=== PATIENT | male | born 1955 | race American Indian/Alaskan Native ===

== ENCOUNTER 2020-10-02 06:23 | Observation (INO) | payer MEDICARE, OTHER ==
[2020-09-26 13:49] LABS: Hematocrit 31.6 % (35.5-45.6); Hemoglobin 11.3 gm/dl (11.8-15.2); Mean Corpuscular HGB Conc 36 % (32-34); Mean Corpuscular Volume 91 fl (84-94); Platelet Count 242 K/mm3 (140-440); Red Blood Count 3.46 M/mm3 (3.65-5.03); Red Cell Distribution Width 17.9 % (13.2-15.2)
--- NOTE | 2020-09-26 14:05 | Anesthesia Consultation ---
Anesthesia Consult and Med Hx Date of service: 10/02/20 - Airway Anesthetic Teeth Evaluation: Good, Edentulous (Upper) ROM Head & Neck: Adequate Mental/Hyoid Distance: Adequate Mallampati Class: Class III Intubation Access Assessment: Probably Good - Pre-Operative Health Status ASA Pre-Surgery Classification: ASA3 Proposed Anesthetic Plan: General - Pulmonary Hx Smoking: No Hx Respiratory Symptoms: No (+2FS. Saw radio television technical director 07/2020-? Pulmonary HTN) Hx Sleep Apnea: Yes (DX SLEEP APNEA- HAD SURGERY,PENDING RESULTS) - Cardiovascular System Hx Hypertension: Yes (1980) Hx Coronary Artery Disease: No (Saw risk control director 07/2020 and reports negative ETT) Hx Heart Attack/AMI: No (Diastolic heart failure) - Central Nervous System Hx Psychiatric Problems: Yes - Gastrointestinal Hx Gastroesophageal Reflux Disease: No - Endocrine Hx Renal Disease: Yes (CKD Stage 3) - Other Systems Hx Cancer: Yes (Prostate)
[2020-09-26 14:07] LABS: Alanine Aminotransferase 10 units/L (7-56); Albumin 4.4 g/dL (3.9-5); BUN/Creatinine Ratio 15; Blood Urea Nitrogen 21 mg/dL (9-20); Calcium 9.8 mg/dL (8.4-10.2); Hemolysis Index 5
[~2020-10-02 06:23] MED LIST: ACETAMINOPHEN 500 MG TAB PO ONE; BACTERIOSTATIC SODIUM CHLORIDE 0.9% 30 ML VIAL INFILTRATI ONE; CELECOXIB 200 MG CAP PO NR; GABAPENTIN 300 MG CAP PO NR; MAGNESIUM OXIDE 400 MG TAB PO ONE; MIDAZOLAM 2 MG/2 ML INJ IV NR
[2020-10-02] MEDS: LACTATED RINGERS 1,000 ML IV SCH ×2 (06:50→18:22)
[2020-10-02] MEDS ORDERED: ceFAZolin/STERILE WATER 2 GM/20 ML SYRINGE IV NR (07:00)
[2020-10-02] MEDS ORDERED: HYDROmorphone 1 MG/1 ML INJ IV PRN (07:16)
[2020-10-02] MEDS ORDERED: ONDANSETRON 4 MG/2 ML INJ IV PRN ×2 (07:16→11:13)
--- NOTE | 2020-10-02 07:16 | Anesthesia Day of Surgery ---
Anesthesia Day of Surgery - Day of Surgery Patient Examined: Yes Patient H&P Reviewed: Yes Patient is NPO: Yes Beta Blockers: Yes (caarvedilol today AM)
[2020-10-02] MEDS ORDERED: METHYLENE BLUE 50 MG/10 ML AMP ONE (07:30)
[2020-10-02] MEDS ORDERED: CITRIC ACID-SOD CITRATE 500 ML IV ONE (07:31)
[2020-10-02] MEDS ORDERED: CALCIUM CHLORIDE 1,000 MG/10 ML SYRINGE IV ONE ×2 (07:31→08:54)
[2020-10-02] MEDS ORDERED: THROMBIN (RECOMBINANT) 5,000 UNIT VIAL TP ONE ×2 (07:31→08:53)
[2020-10-02] MEDS ORDERED: dexAMETHasone 20 MG/5 ML VIAL ONE (07:44)
[2020-10-02] MEDS ORDERED: LIDOCAINE MPF (2%) 20 MG/1 ML VIAL 5 ML ONE (07:44)
[2020-10-02] MEDS ORDERED: ROCURONIUM 50 MG/5 ML INJ IV ONE (07:44)
[2020-10-02] MEDS ORDERED: SUCCINYLCHOLINE CHLORIDE 200 MG/10 ML INJ MDV ONE (07:44)
[2020-10-02] MEDS ORDERED: GLYCOPYRROLATE 0.4 MG/2 ML INJ ONE (07:44)
[2020-10-02] MEDS ORDERED: PHENYLEPHRINE/NS 1,000 MCG/10 ML SYRINGE (OR USE) IV ONE (07:44)
[2020-10-02] MEDS ORDERED: fentaNYL 100 MCG/2 ML INJ ONE (07:44)
[2020-10-02] MEDS ORDERED: ONDANSETRON 4 MG/2 ML INJ ONE (07:44)
[2020-10-02] MEDS ORDERED: NEOSTIGMINE 10MG/10 ML INJ MDV ONE (07:44)
[2020-10-02] MEDS ORDERED: propofoL 200 MG/20 ML VIAL IV ONE (07:45)
[2020-10-02] MEDS ORDERED: ePHEDrine SULFATE 50 MG/1 ML INJ ONE ×2 (07:53→12:39)
[2020-10-02] MEDS ORDERED: VASOPRESSIN 20 UNIT/1 ML INJ ONE ×2 (08:02→08:40)
[2020-10-02] MEDS ORDERED: CITRIC ACID-SOD CITRATE SOLN 500 ML IV SOLN IV ONE (08:52)
[2020-10-02] MEDS ORDERED: SODIUM CHLORIDE 0.9% IRRIG SOLN 2000 ML IR ONE (08:54)
[2020-10-02] MEDS ORDERED: WATER FOR IRRIG STERILE 1,500 ML BOTTLE IR ONE (08:54)
[2020-10-02] MEDS ORDERED: BUPIVACAINE-EPINEPHRINE/PF 0.5%-1:200,000 (10 ML) VIAL INFILTRATI ONE (08:59)
[2020-10-02] MEDS ORDERED: HYDROmorphone 1 MG/1 ML INJ ONE ×2 (10:07→12:53)
[2020-10-02] MEDS ORDERED: BUPIVACAINE/PF (0.5%) 5 MG/1 ML 10 ML VIAL INFILTRATI ONE (10:15)
[2020-10-02] MEDS ORDERED: ZOLPIDEM 5 MG TAB PO PRN (11:13)
[2020-10-02] MEDS ORDERED: NALOXONE 0.4 MG/1 ML INJ IV PRN (11:13)
[2020-10-02] MEDS ORDERED: MORPHINE 4 MG/1 ML INJ IV PRN (11:13)
--- NOTE | 2020-10-02 11:13 | Short Stay Summary ---
Short Stay Documentation Date of service: 10/02/20 - History H&P: obtained from office - Allergies and Medications Current Medications: Allergies lisinopril Allergy (Verified 09/25/20 17:01) Swelling Home Medications Medication Instructions Recorded Confirmed Last Taken Type Aspirin [Adult Aspirin] 81 mg PO DAILY 09/25/20 10/02/20 2 Weeks Ago History ~09/18/20 Ascorbic Acid [Vitamin C] 1,000 mg PO DAILY 09/26/20 09/26/20 10/01/20 History Cyanocobalamin (Vitamin B-12) 2,500 mcg PO DAILY 09/26/20 09/26/20 10/01/20 History [Vitamin B12] Hydralazine HCl 50 mg PO BID 09/26/20 09/26/20 10/02/20 05:00 History Multivit-Min/FA/Lycopen/Lutein 1 each PO DAILY 09/26/20 09/26/20 10/01/20 History [Centrum Silver Tablet] NIFEdipine [Nifedipine ER] 60 mg PO DAILY 09/26/20 09/26/20 10/02/20 05:00 History Quetiapine Fumarate [SEROquel] 400 mg PO BID 09/26/20 09/26/20 10/01/20 History Rosuvastatin Calcium [Crestor] 10 mg PO DAILY 09/26/20 09/26/20 10/01/20 History Terazosin (Nf) [Hytrin (Nf)] 5 mg PO QHS 09/26/20 09/26/20 10/01/20 History carBAMazepine [Carbamazepine ER] 100 mg PO BID 09/26/20 09/26/20 10/02/20 05:00 History carvediloL [Coreg] 12.5 mg PO BID 09/26/20 09/26/20 10/02/20 05:00 History gemfibroziL [Lopid] 600 mg PO BID 09/26/20 09/26/20 10/01/20 History minoxidiL [Loniten] 10 mg PO QDAY 09/26/20 09/26/20 10/01/20 History Active Medications Cefazolin Sodium (Ancef/Sterile Water 2 Gm/20 Ml) 2 gm IV PREOP NR Stop: 10/02/20 20:00 Celecoxib (Celebrex) 200 mg PO PREOP NR Stop: 10/02/20 23:59 Last Admin: 10/02/20 06:55 Dose: 200 mg Documented by: Gabapentin (Gabapentin) 300 mg PO PREOP NR Stop: 10/02/20 23:59 Last Admin: 10/02/20 06:55 Dose: 300 mg Documented by: Hydromorphone HCl (Dilaudid) 0.5 mg IV Q10MIN PRN PRN Reason: Pain , Severe (7-10) Stop: 10/02/20 20:00 Lactated Ringer's (Lactated Ringers) 1,000 mls @ 125 mls/hr IV DIRECT DIALLO Last Admin: 10/02/20 06:50 Dose: 125 mls/hr Documented by: Midazolam HCl (Versed) 2 mg IV PREOP NR Stop: 10/02/20 23:59 Last Admin: 10/02/20 07:05 Dose: 2 mg Documented by: Ondansetron HCl (Zofran) 4 mg IV ONCE PRN PRN Reason: Nausea And Vomiting Stop: 10/02/20 13:00 - Brief post op/procedure progress note Date of procedure: 10/02/20 Pre-op diagnosis: prostate cancer Post-op diagnosis: same Procedure: robotic prostatectomy Anesthesia: GETA Surgeon: SEBASTIAN RANGEL Estimated blood loss: other (500cc) Specimen disposition: to lab Condition: stable - Hospital course Hospital course: pt has norco & ultram post op info on chart pt required transfusion PRBCs went home with ghotra will monitor kidney function pt has hx of renal insufficient & will f/u with nephrology - Disposition Condition at discharge: Stable Disposition: DC-01 TO HOME OR SELFCARE Short Stay Discharge Plan Follow up with: PEDRO FIELD [Other] - 7 Days
[2020-10-02] MEDS ORDERED: LACTATED RINGERS 1,000 ML ONE ×3 (11:56→12:57)
[2020-10-02 12:35] LABS: Hematocrit 25.8 % (35.5-45.6); Hemoglobin 8.9 gm/dl (11.8-15.2)
[2020-10-02] MEDS ORDERED: ePHEDrine SULFATE 50 MG/1 ML INJ IM ONE (12:45)
[2020-10-02] MEDS ORDERED: SODIUM CHLORIDE 0.9% 500 ML 500 ML IV NR (12:48)
[2020-10-02] MEDS ORDERED: SODIUM CHLORIDE 0.9% 500 ML 500 ML ONE (13:14)
[2020-10-02] MEDS ORDERED: SODIUM CHLORIDE IR ONE (14:07)
[2020-10-02] MEDS ORDERED: SODIUM CHLORIDE IRRI 1000 ML 1,000 ML IR ONE (14:09)
--- NOTE | 2020-10-02 15:45 | Post Anesthesia Evaluation ---
- Post Anesthesia Evaluation Patient Participated: Yes Airway Patent: Yes Stable Respiratory Function: Yes Nausea/Vomiting: No Temp > 96.8F: Yes Pain Manageable: Yes Adequeate Hydration: Yes Anesthesia Complications: No Other Comments: Became hypotensive in PACU with decreased UOP. Post op H/H showed anemia and patient received 2 units pRBCs. Huang flushed by surgeon at bedside. Stable with improvement in BP at time of transfer to floor.
--- NOTE | 2020-10-02 20:47 | Operative Report ---
PREOPERATIVE DIAGNOSIS: Prostate cancer, Abi 6. POSTOPERATIVE DIAGNOSIS: Prostate cancer, [place] 6. PROCEDURE: Robotic-assisted laparoscopic prostatectomy, bladder neck suspension. SURGEON: Kahlil Chawla MD VALVE MECHANIC: Neela Amezcua. ANESTHESIA: General. ESTIMATED BLOOD LOSS: 500 mL. FLUIDS: Crystalloid. COMPLICATIONS: No complications. DRAINS: Lyndon-Florez drain x 1. INDICATIONS: This 65-year-old gentleman underwent prostate biopsy for PSA of 8.3 by another urologist. He was found to have Abi 6 adenocarcinoma of the prostate in 6 of 12 cores. Discussed options. He presented for a second opinion on 07/10/2020. Reviewed his records and discussed recommendations, also indicated would not observe, recommend robotic prostatectomy. Risks, benefits, and complications were explained. DESCRIPTION OF PROCEDURE: The patient was taken to the operative suite, placed in a supine position. After adequate general anesthesia, he was placed in a modified dorsal lithotomy position, prepped and draped in a sterile fashion. Huang catheter was placed on the operative field, 1 cm supraumbilical incision was made. Towel clips were placed. 15 cm was measured cephalad the pubic symphysis and was marked in the midline, 9 cm lateral and additional 9 cm lateral was marked as well for placement of robotic trocars. The incision was made in the supraumbilical incision. Veress needle was used for drop test, which was negative. Opening pressure was 0 degrees. Insufflation to 15 cm of water was performed without difficulty. A 0-degree lens was placed under direct vision without difficulty. No signs of injury could be appreciated. The 8 mm robotic ports were placed on the left side under direct vision and 8-mm port was placed in the right side as well as a 10 mm helper port and a 5 mm helper port on the right side. The patient was then placed in a modified dorsal lithotomy position. Robotic cart was docked between the legs. Next, attention was taken to the posterior aspect of the bladder neck. Second arch was scored exposing the seminal vesicles and vas deferens. Dissection was taken down to the apex of the prostate. Vas deferens was transected. Next, attention was taken to the anterior abdominal wall, was scored lateral to the lateral umbilical ligament exposing the pubic rami bilaterally. Bladder flap was dropped. Dorsal vein complex was controlled with 60 mm vascular stapler. There was a fair amount of parasitic blood vessels that had to be controlled with the cautery. Endopelvic fascia was opened bilaterally. Dissection was taken to the bladder neck. Transanterior bladder neck was transected exposing the Huang, which was deflated and used for anterior traction. Posterior bladder neck was transected, dissected out exposing the seminal vesicles and vas deferens, which was pulled anteriorly. Lateral pedicles were controlled with 60 mm vascular stapler. Dissection was taken to the apex of the prostate, urethra anteriorly was exposed, pulled the Huang catheter back and the posterior apex of the urethra was transected. Prostate was then placed in the EndoCatch bag. Copious irrigation was performed. Adequate hemostasis was achieved. No injury to the bladder could be appreciated due to ____ adipose tissue and the neurovascular bundle could not be appreciated. Bladder neck reconstruction was performed at the 5 o'clock and 7 o'clock positions using 2-0 Vicryl in interrupted fashion. A 12 o'clock Vicryl stitch at the bladder neck was used as a helper stitch. Double armed V-Loc was placed at the 6 o'clock position of the bladder neck and a running stitch into the urethra and bladder neck was performed without difficulty. A new 18-Finn[place] Huang catheter was advanced into the bladder without difficulty. The bladder neck stitch was cinched down. Irrigation of the Huang revealed no leak. Anastomotic stitch was then placed in the posterior aspect of the pubic rami as a bladder suspension bilaterally. [place] were removed. Copious irrigation was performed. Adequate hemostasis was achieved. Platelet-rich plasma and platelet poor plasma was injected around the periurethral area as well as a platelet membrane. Lyndon-Florez drain was brought out on the left-sided port, secured at the skin with a 2-0 silk in interrupted fashion. The robot was undocked. The patient was placed in a supine position. Umbilical incision was extended slightly to remove the prostate. #1 Vicryl in a [id number] fashion was used to close the supraumbilical incision. The other sites were removed without difficulty. Skin was closed with 3-0 Monocryl in an interrupted fashion. Huang catheter sideport was folded over and tied with 0 silk in an interrupted fashion. The patient tolerated the procedure well and was extubated and taken to recovery room in stable condition. He will be observed overnight. He has his Bactrim and [place]. Neela Amezcua was present at the bedside to facilitate surgery for the duration of the case. JOB# [id number] [facility]/NT[facility]
[2020-10-02] MEDS: PRAZOSIN 1 MG CAP PO SCH ×2 (21:00→23:03)
[2020-10-02] MEDS ORDERED: NON-FORMULARY EACH (Terazosin (Nf) 5 MG) PO SCH (21:00)
[2020-10-02] MEDS: ceFAZolin/NS 1 GM/50 ML 1 GM/50 ML BAG IV SCH (21:24)
[2020-10-02] MEDS: hydrALAZINE 25 MG TAB PO SCH (22:00)
[2020-10-02] MEDS: QUEtiapine 200 MG TAB PO SCH (22:00)
[2020-10-02] MEDS: carvediloL 12.5 MG TAB PO SCH (22:00)
[2020-10-02] MEDS ORDERED: SODIUM CHLORIDE 0.9% IRR 1,000 ML BOTTLE IR PRN (22:20)
[2020-10-02] MEDS: GEMFIBROZIL 600 MG TAB PO SCH (23:05)
[2020-10-02] MEDS: carBAMazepine XR 100 MG TAB PO SCH (23:05)
[2020-10-02] MEDS: HYDROcodone/ACETAMINOPHEN 5-325 MG TAB PO PRN (23:06)
[2020-10-03] MEDS: LACTATED RINGERS 1,000 ML IV SCH ×2 (04:15→23:57)
[2020-10-03] MEDS: HYDROcodone/ACETAMINOPHEN 5-325 MG TAB PO PRN ×3 (04:20→15:06)
[2020-10-03] MEDS: ceFAZolin/NS 1 GM/50 ML 1 GM/50 ML BAG IV SCH (05:30)
[2020-10-03 06:23] LABS: Basophils % (Auto) 0.3 % (0.0-1.8); Eosinophils % (Auto) 0.1 % (0.0-4.3); Hematocrit 21.5 % (35.5-45.6); Hemoglobin 7.5 gm/dl (11.8-15.2); Lymphocytes # (Auto) 0.9 K/mm3 (1.2-5.4); Lymphocytes % (Auto) 9.3 % (13.4-35.0); Mean Corpuscular HGB Conc 35 % (32-34); Mean Corpuscular Volume 91 fl (84-94); Monocytes # (Auto) 1.4 K/mm3 (0.0-0.8); Monocytes % (Auto) 15.6 % (0.0-7.3); Platelet Count 160 K/mm3 (140-440); Red Blood Count 2.38 M/mm3 (3.65-5.03); Red Cell Distribution Width 16.6 % (13.2-15.2)
[2020-10-03 06:42] LABS: Calcium 7.5 mg/dL (8.4-10.2)
[2020-10-03] MEDS: hydrALAZINE 25 MG TAB PO SCH ×2 (08:00→22:00)
[2020-10-03] MEDS ORDERED: SODIUM CHLORIDE 0.9% 500 ML 500 ML IV ONE (08:40)
--- NOTE | 2020-10-03 09:52 | Cat Scan Report ---
CT abdomen pelvis wo con INDICATION: anemia, abd pain, sp robotic prostatectomy. TECHNIQUE: All CT scans at this location are performed using CT dose reduction for ALARA by means of automated e xposure control. COMPARISON: None available. FINDINGS: Lung bases are clear of acute disease. Liver, gallbladder, spleen and pancreas are negative. Right ki dney and both adrenals are unremarkable. 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 Pelvis Huang catheter is present in the urinary bladder, so the bladder is mostly collapsed. There is modera te extraluminal gas in the lower abdomen and pelvis as well as moderate edema and fluid accumulation in the perirenal spaces and mesentery of the lower abdomen and pelvis. This fluid is high in attenuat ion and could well represent hemorrhage. There also appears to be a moderate-sized hematoma of the in ferior right lateral abdominal wall. IMPRESSION: 1. Extensive postop change in the pelvis and lower abdomen, with what is thought to be fairly extensi ve hemorrhage into the lower peritoneum, as well as a moderate-sized hematoma of the right lateral an d inferior abdominal wall. Signer Name: Anil Hermosillo MD Signed: 10/03/2020 9:47 AM Workstation Name: [id number]
[2020-10-03] MEDS ORDERED: [UNRECOGNIZED DRUG - OTHER] PO SCH (10:00)
[2020-10-03] MEDS: NIFEdipine XL 60 MG TAB PO SCH (10:00)
[2020-10-03] MEDS ORDERED: MULTIVIT MIN PO SCH (10:00)
[2020-10-03] MEDS ORDERED: LYCOPEN PO SCH (10:00)
[2020-10-03] MEDS ORDERED: ROSUVASTATIN CALCIUM 10 MG PO SCH (10:00)
[2020-10-03] MEDS ORDERED: LUTEIN PO SCH (10:00)
[2020-10-03 14:10] LABS: INR 1.25 (0.87-1.13)
[2020-10-03 14:11] LABS: Partial Thromboplastin Time 34.7 Sec. (24.2-36.6)
[2020-10-03] MEDS: CYANOCOBALAMIN (VIT B-12) 1000 MCG TAB PO SCH (15:05)
[2020-10-03] MEDS: MINOXIDIL 10 MG TAB PO SCH (15:06)
[2020-10-03] MEDS: QUEtiapine 200 MG TAB PO SCH ×2 (15:06→23:41)
[2020-10-03] MEDS: MULTIVITAMINS,THER W-MINERALS TAB PO SCH (15:07)
[2020-10-03] MEDS: carvediloL 12.5 MG TAB PO SCH ×2 (15:11→23:40)
[2020-10-03] MEDS: carBAMazepine XR 100 MG TAB PO SCH ×2 (15:12→23:42)
[2020-10-03] MEDS: GEMFIBROZIL 600 MG TAB PO SCH ×2 (15:15→23:41)
--- NOTE | 2020-10-03 15:15 | Progress Note ---
Assessment and Plan Assessment and plan: 65 year old male admitted for Robotic Prostectomy Post op Day 1 Prostate CA s/p prostectomy Acute Kidney Injury s/p Vasomotor Nephropathy Thrombocytopenia Anemia secondary to precipitous Drop in Hemoglobin Dehydration Hyponatremia JESS HTN Plan Continue supportive care Obtain Nephrology input if no improvement in Renal Restart Home meds Ensure care for JOSE drain Pain control Monitor H/H Discharge when ok with Urology History Interval history: Patient seen and examined, resting comfortable in no acute distress. Hospitalist Physical - Constitutional Vitals: Temp Pulse Resp BP Pulse Ox 98.4 F 66 18 131/63 100 10/03/20 14:50 10/03/20 15:11 10/03/20 14:50 10/03/20 15:11 10/03/20 14:50 General appearance: Present: no acute distress, well-nourished - EENT Eyes: Present: PERRL ENT: hearing intact - Neck Neck: Present: supple, normal ROM - Respiratory Respiratory effort: normal Respiratory: bilateral: CTA - Cardiovascular Rhythm: regular Heart Sounds: Present: S1 & S2. Absent: systolic murmur, diastolic murmur - Extremities Extremities: no ischemia, pulses intact, pulses symmetrical, No edema, normal temperature, normal color, Full ROM Peripheral Pulses: within normal limits - Abdominal General gastrointestinal: soft, non-tender, non-distended, normal bowel sounds - Integumentary Integumentary: Present: clear, warm, dry - Psychiatric Psychiatric: appropriate mood/affect, intact judgment & insight - Neurologic Neurologic: CNII-XII intact, moves all extremities - Allied Health Allied health notes reviewed: nursing Results - Labs CBC & Chem 7: 10/04/20 06:09 10/04/20 06:09 Labs: Laboratory Last Values WBC 9.2 K/mm3 (4.5-11.0) 10/03/20 05:46 RBC 2.38 M/mm3 (3.65-5.03) L 10/03/20 05:46 Hgb 7.5 gm/dl (11.8-15.2) L 10/03/20 05:46 Hct 21.5 % (35.5-45.6) L 10/03/20 05:46 MCV 91 fl (84-94) 10/03/20 05:46 MCH 32 pg (28-32) 10/03/20 05:46 MCHC 35 % (32-34) H 10/03/20 05:46 RDW 16.6 % (13.2-15.2) H 10/03/20 05:46 Plt Count 160 K/mm3 (140-440) 10/03/20 05:46 Lymph % (Auto) 9.3 % (13.4-35.0) L 10/03/20 05:46 [place] % (Auto) 15.6 % (0.0-7.3) H 10/03/20 05:46 Eos % (Auto) 0.1 % (0.0-4.3) 10/03/20 05:46 Baso % (Auto) 0.3 % (0.0-1.8) 10/03/20 05:46 Lymph # (Auto) 0.9 K/mm3 (1.2-5.4) L 10/03/20 05:46 [place] # (Auto) 1.4 K/mm3 (0.0-0.8) H 10/03/20 05:46 Eos # (Auto) 0.0 K/mm3 (0.0-0.4) 10/03/20 05:46 Baso # (Auto) 0.0 K/mm3 (0.0-0.1) 10/03/20 05:46 Seg Neutrophils % 74.7 % (40.0-70.0) H 10/03/20 05:46 Seg Neutrophils # 6.9 K/mm3 (1.8-7.7) 10/03/20 05:46 PT 15.7 Sec. (12.2-14.9) H 10/03/20 13:08 INR 1.25 (0.87-1.13) H 10/03/20 13:08 APTT 34.7 Sec. (24.2-36.6) 10/03/20 13:08 Sodium 130 mmol/L (137-145) L 10/03/20 05:46 Potassium 4.8 mmol/L (3.6-5.0) 10/03/20 05:46 Chloride 97.8 mmol/L (98-107) L 10/03/20 05:46 Carbon Dioxide 22 mmol/L (22-30) 10/03/20 05:46 Anion Gap 15 mmol/L 10/03/20 05:46 BUN 39 mg/dL (9-20) H 10/03/20 05:46 Creatinine 3.3 mg/dL (0.8-1.3) H 10/03/20 05:46 Estimated GFR 23 ml/min 10/03/20 05:46 BUN/Creatinine Ratio 12 % 10/03/20 05:46 Glucose 136 mg/dL (75-100) H 10/03/20 05:46 Calcium 7.5 mg/dL (8.4-10.2) L 10/03/20 05:46 Total Bilirubin 0.30 mg/dL (0.1-1.2) 09/26/20 13:30 AST 20 units/L (5-40) 09/26/20 13:30 ALT 10 units/L (7-56) 09/26/20 13:30 Alkaline Phosphatase 75 units/L (35-129) 09/26/20 13:30 Total Protein 8.4 g/dL (6.3-8.2) H 09/26/20 13:30 Albumin 4.4 g/dL (3.9-5) 09/26/20 13:30 Albumin/Globulin Ratio 1.1 % 09/26/20 13:30 Coronavirus (PCR) Negative (Negative) 09/26/20 Unknown Blood Type O POSITIVE 10/02/20 06:50 Antibody Screen Negative 10/02/20 06:50 Crossmatch See Detail 10/02/20 06:50 Huang/IV: Voiding Method Indwelling Catheter IV Catheter Type [Left Forearm INT / [place]ine [place] ] IV Catheter Type [Right Peripheral IV Forearm] Active Medications - Current Medications Current Medications: Generic Name Dose Route Start Last Admin Trade Name Freq PRN Reason Stop Dose Admin Hydrocodone Bitart/Acetaminophen 2 each 10/02/20 11:13 10/03/20 15:06 [place] 5/325 PO 2 each Q4H PRN Administration Pain, Moderate (4-6) Atorvastatin Calcium 20 mg 10/02/20 21:00 10/02/20 21:00 Lipitor PO Not Given QHS DIALLO Carbamazepine 100 mg 10/02/20 22:00 10/03/20 15:12 Tegretol Xr PO 100 mg BID DIALLO Administration Carvedilol 12.5 mg 10/02/20 22:00 10/03/20 15:11 Coreg PO 12.5 mg BID DIALLO Administration Cyanocobalamin 2,500 mcg 10/03/20 10:00 10/03/20 15:05 Vitamin B-12 PO 2,500 mcg DAILY DIALLO Administration Gemfibrozil 600 mg 10/02/20 22:00 10/02/20 23:05 Lopid PO 600 mg BID DIALLO Administration Hydralazine HCl 50 mg 10/02/20 22:00 10/02/20 22:00 Apresoline PO Not Given BID DIALLO Lactated Ringer's 1,000 mls @ 125 mls/hr 10/02/20 06:00 10/03/20 04:15 Lactated Ringers IV 125 mls/hr DIRECT DIALLO Administration Minoxidil 10 mg 10/03/20 08:00 10/03/20 15:06 Loniten PO 10 mg QDAY DIALLO Administration Morphine Sulfate 4 mg 10/02/20 11:13 Morphine IV Q4H PRN Pain , Severe (7-10) Multivitamins/Minerals 1 each 10/03/20 08:00 10/03/20 15:07 Theragran-M Tab PO 1 each QDAY DIALLO Administration Naloxone HCl 0.1 mg 10/02/20 11:13 Naloxone IV Q2MIN PRN Res Rate </= 8 or 02 SAT < 92% Nifedipine 60 mg 10/03/20 10:00 Procardia Xl PO DAILY DIALLO Ondansetron HCl 4 mg 10/02/20 11:13 Zofran IV Q8H PRN Nausea And Vomiting Prazosin HCl 1 mg 10/02/20 21:00 10/02/20 21:00 Prazosin PO Not Given QHS DIALLO Quetiapine Fumarate 400 mg 10/02/20 22:00 10/03/20 15:06 Seroquel PO 400 mg BID DIALLO Administration Sodium Chloride 1,000 ml 10/02/20 22:20 Nacl 0.9% IR PRN PRN Wound Care Zolpidem Tartrate 5 mg 10/02/20 11:13 Ambien PO QHS PRN Sleep
--- NOTE | 2020-10-03 17:28 | Progress Note ---
Subjective Date of service: 10/03/20 Interval history: s/p robotic prostatectomy 10-02-20 pt with post op pain just finished PRBC'S----5PM abd mild distended ghotra----irrigates well --no clots guillermo site clean CTAP--- + pelvic hemorrhage, rt lateral abd wall bleed (? port site) A/P s/p robotic prostatectomy 10-02-20 acute hemorrhage--s/p transfusion renal insufficiency dehydration check labs regular diet Objective - Constitutional Vitals: Vital Signs - 12hr 10/03/20 10/03/20 10/03/20 06:08 07:57 10:33 Temperature 97.4 F L 98.1 F 97.5 F L Pulse Rate 57 L 61 62 Respiratory 18 18 18 Rate Blood Pressure 114/46 97/41 O2 Sat by Pulse 97 93 99 Oximetry 10/03/20 10/03/20 10/03/20 12:17 12:38 12:42 Temperature 98.2 F 98.2 F 98.3 F Pulse Rate 58 L 58 L 60 Respiratory 18 18 18 Rate Blood Pressure 127/65 127/65 129/67 O2 Sat by Pulse 100 100 100 Oximetry 10/03/20 10/03/20 10/03/20 12:57 13:27 13:57 Temperature 98.3 F 98.4 F 98.5 F Pulse Rate 61 61 60 Respiratory 18 18 18 Rate Blood Pressure 128/69 116/67 123/62 O2 Sat by Pulse 100 100 100 Oximetry 10/03/20 10/03/20 10/03/20 14:27 14:37 14:46 Temperature 98.5 F 98.4 F 98.4 F Pulse Rate 60 60 63 Respiratory 18 18 19 Rate Blood Pressure 127/60 130/63 133/72 O2 Sat by Pulse 100 100 100 Oximetry 10/03/20 10/03/20 10/03/20 14:50 15:05 15:11 Temperature 98.4 F 98.5 F Pulse Rate 66 65 66 Respiratory 18 18 Rate Blood Pressure 126/66 128/67 131/63 O2 Sat by Pulse 100 100 Oximetry 10/03/20 15:17 Temperature 98.5 F Pulse Rate 68 Respiratory 18 Rate Blood Pressure 131/63 O2 Sat by Pulse 99 Oximetry - Labs CBC & Chem 7: 10/03/20 05:46 10/03/20 05:46 Labs: Abnormal lab results 10/02/20 10/03/20 10/03/20 Range/Units 06:50 05:46 05:46 RBC 2.38 L (3.65-5.03) M/mm3 Hgb 7.5 L (11.8-15.2) gm/dl Hct 21.5 L (35.5-45.6) % MCHC 35 H (32-34) % RDW 16.6 H (13.2-15.2) % Lymph % (Auto) 9.3 L (13.4-35.0) % [place] % (Auto) 15.6 H (0.0-7.3) % Lymph # (Auto) 0.9 L (1.2-5.4) K/mm3 [place] # (Auto) 1.4 H (0.0-0.8) K/mm3 Seg Neutrophils % 74.7 H (40.0-70.0) % PT (12.2-14.9) Sec. INR (0.87-1.13) Sodium 130 L (137-145) mmol/L Chloride 97.8 L (98-107) mmol/L BUN 39 H (9-20) mg/dL Creatinine 3.3 H (0.8-1.3) mg/dL Glucose 136 H (75-100) mg/dL Calcium 7.5 L (8.4-10.2) mg/dL Crossmatch See Detail 10/03/20 Range/Units 13:08 RBC (3.65-5.03) M/mm3 Hgb (11.8-15.2) gm/dl Hct (35.5-45.6) % MCHC (32-34) % RDW (13.2-15.2) % Lymph % (Auto) (13.4-35.0) % [place] % (Auto) (0.0-7.3) % Lymph # (Auto) (1.2-5.4) K/mm3 [place] # (Auto) (0.0-0.8) K/mm3 Seg Neutrophils % (40.0-70.0) % PT 15.7 H (12.2-14.9) Sec. INR 1.25 H (0.87-1.13) Sodium (137-145) mmol/L Chloride (98-107) mmol/L BUN (9-20) mg/dL Creatinine (0.8-1.3) mg/dL Glucose (75-100) mg/dL Calcium (8.4-10.2) mg/dL Crossmatch Medications & Allergies - Medications Allergies/Adverse Reactions: Allergies lisinopril Allergy (Verified 09/25/20 17:01) Swelling Home Medications: Home Medications Medication Instructions Recorded Confirmed Last Taken Type Aspirin [Adult Aspirin] 81 mg PO DAILY 09/25/20 10/02/20 2 Weeks Ago History ~09/18/20 Ascorbic Acid [Vitamin C] 1,000 mg PO DAILY 09/26/20 09/26/20 10/01/20 History Cyanocobalamin (Vitamin B-12) 2,500 mcg PO DAILY 09/26/20 09/26/20 10/01/20 History [Vitamin B12] Hydralazine HCl 50 mg PO BID 09/26/20 09/26/20 10/02/20 05:00 History Multivit-Min/FA/Lycopen/Lutein 1 each PO DAILY 09/26/20 09/26/20 10/01/20 H istory [Centrum Silver Tablet] NIFEdipine [Nifedipine ER] 60 mg PO DAILY 09/26/20 09/26/20 10/02/20 05:00 History Quetiapine Fumarate [SEROquel] 400 mg PO BID 09/26/20 09/26/20 10/01/20 History Rosuvastatin Calcium [Crestor] 10 mg PO DAILY 09/26/20 09/26/20 10/01/20 History Terazosin (Nf) [Hytrin (Nf)] 5 mg PO QHS 09/26/20 09/26/20 10/01/20 History carBAMazepine [Carbamazepine ER] 100 mg PO BID 09/26/20 09/26/20 10/02/20 05:00 History carvediloL [Coreg] 12.5 mg PO BID 09/26/20 09/26/20 10/02/20 05:00 History gemfibroziL [Lopid] 600 mg PO BID 09/26/20 09/26/20 10/01/20 History minoxidiL [Loniten] 10 mg PO QDAY 09/26/20 09/26/20 10/01/20 History Active Medications: Generic Name Dose Route Start Last Admin Trade Name Freq PRN Reason Stop Dose Admin Hydrocodone Bitart/Acetaminophen 2 each 10/02/20 11:13 10/03/20 15:06 [place] 5/325 PO 2 each Q4H PRN Administration Pain, Moderate (4-6) Atorvastatin Calcium 20 mg 10/02/20 21:00 10/02/20 21:00 Lipitor PO Not Given QHS DIALLO Carbamazepine 100 mg 10/02/20 22:00 10/03/20 15:12 Tegretol Xr PO 100 mg BID DIALLO Administration Carvedilol 12.5 mg 10/02/20 22:00 10/03/20 15:11 Coreg PO 12.5 mg BID DIALLO Administration Cyanocobalamin 2,500 mcg 10/03/20 10:00 10/03/20 15:05 Vitamin B-12 PO 2,500 mcg DAILY DIALLO Administration Gemfibrozil 600 mg 10/02/20 22:00 10/02/20 23:05 Lopid PO 600 mg BID DIALLO Administration Hydralazine HCl 50 mg 10/02/20 22:00 10/02/20 22:00 Apresoline PO Not Given BID [facility] Lactated Ringer's 1,000 mls @ 125 mls/hr 10/02/20 06:00 10/03/20 04:15 Lactated Ringers IV 125 mls/hr DIRECT DIALLO Administration Minoxidil 10 mg 10/03/20 08:00 10/03/20 15:06 Loniten PO 10 mg QDAY DIALLO Administration Morphine Sulfate 4 mg 10/02/20 11:13 Morphine IV Q4H PRN Pain , Severe (7-10) Multivitamins/Minerals 1 each 10/03/20 08:00 10/03/20 15:07 Theragran-M Tab PO 1 each QDAY DIALLO Administration Naloxone HCl 0.1 mg 10/02/20 11:13 Naloxone IV Q2MIN PRN Res Rate </= 8 or 02 SAT < 92% Nifedipine 60 mg 10/03/20 10:00 Procardia Xl PO DAILY [facility] Ondansetron HCl 4 mg 10/02/20 11:13 Zofran IV Q8H PRN Nausea And Vomiting Prazosin HCl 1 mg 10/02/20 21:00 10/02/20 21:00 Prazosin PO Not Given QHS [facility] Quetiapine Fumarate 400 mg 10/02/20 22:00 10/03/20 15:06 Seroquel PO 400 mg BID DIALLO Administration Sodium Chloride 1,000 ml 10/02/20 22:20 Nacl 0.9% IR PRN PRN Wound Care Zolpidem Tartrate 5 mg 10/02/20 11:13 Ambien PO QHS PRN Sleep
[2020-10-03 19:22] LABS: Basophils % (Auto) 0.5 % (0.0-1.8); Eosinophils # (Auto) 0.2 K/mm3 (0.0-0.4); Eosinophils % (Auto) 2.5 % (0.0-4.3); Hematocrit 25.1 % (35.5-45.6); Hemoglobin 8.7 gm/dl (11.8-15.2); Lymphocytes % (Auto) 11.1 % (13.4-35.0); Mean Corpuscular HGB Conc 35 % (32-34); Mean Corpuscular Volume 91 fl (84-94); Monocytes # (Auto) 1.2 K/mm3 (0.0-0.8); Monocytes % (Auto) 12.9 % (0.0-7.3); Platelet Count 127 K/mm3 (140-440); Red Blood Count 2.77 M/mm3 (3.65-5.03)
[2020-10-03] MEDS: PRAZOSIN 1 MG CAP PO SCH (22:00)
[2020-10-04] MEDS: HYDROcodone/ACETAMINOPHEN 5-325 MG TAB PO PRN ×4 (05:37→18:35)
[2020-10-04 06:53] LABS: Hematocrit 23.4 % (35.5-45.6); Hemoglobin 8.2 gm/dl (11.8-15.2); Mean Corpuscular HGB Conc 35 % (32-34); Mean Corpuscular Volume 90 fl (84-94); Platelet Count 124 K/mm3 (140-440); Red Blood Count 2.61 M/mm3 (3.65-5.03); Red Cell Distribution Width 16.5 % (13.2-15.2)
[2020-10-04 07:01] LABS: INR 1.22 (0.87-1.13); Partial Thromboplastin Time 35.6 Sec. (24.2-36.6)
[2020-10-04 07:05] LABS: Calcium 7.6 mg/dL (8.4-10.2)
--- NOTE | 2020-10-04 09:48 | Progress Note ---
Subjective Interval history: s/p robotic prostatectomy 10-02-20 pt with post op pain abd mild distended ghotra----irrigates well --no clots guillermo site clean-- removed CTAP--- + pelvic hemorrhage, rt lateral abd wall bleed (? port site) A/P s/p robotic prostatectomy 10-02-20 acute hemorrhage--s/p transfusion regular check labs at noon possible home today Objective - Constitutional Vitals: Vital Signs - 12hr 10/03/20 10/03/20 10/03/20 22:00 23:35 23:40 Temperature 97.5 F L Pulse Rate 64 64 64 Respiratory 18 Rate Blood Pressure 128/55 128/55 128/55 O2 Sat by Pulse 95 Oximetry 10/04/20 10/04/20 04:27 07:04 Temperature 97.7 F 98.5 F Pulse Rate 66 64 Respiratory 18 20 Rate Blood Pressure 133/63 129/64 O2 Sat by Pulse 96 95 Oximetry - Labs CBC & Chem 7: 10/04/20 06:09 10/04/20 06:09 Labs: Abnormal lab results 10/02/20 10/03/20 10/03/20 Range/Units 06:50 13:08 18:58 RBC 2.77 L (3.65-5.03) M/mm3 Hgb 8.7 L (11.8-15.2) gm/dl Hct 25.1 L (35.5-45.6) % MCHC 35 H (32-34) % RDW 16.0 H (13.2-15.2) % Plt Count 127 L (140-440) K/mm3 Lymph % (Auto) 11.1 L (13.4-35.0) % [place] % (Auto) 12.9 H (0.0-7.3) % Lymph # (Auto) 1.0 L (1.2-5.4) K/mm3 [place] # (Auto) 1.2 H (0.0-0.8) K/mm3 Seg Neutrophils % 73.0 H (40.0-70.0) % PT 15.7 H (12.2-14.9) Sec. INR 1.25 H (0.87-1.13) Sodium (137-145) mmol/L BUN (9-20) mg/dL Creatinine (0.8-1.3) mg/dL Calcium (8.4-10.2) mg/dL Crossmatch See Detail 10/04/20 10/04/20 10/04/20 Range/Units 06:09 06:09 06:09 RBC 2.61 L (3.65-5.03) M/mm3 Hgb 8.2 L (11.8-15.2) gm/dl Hct 23.4 L (35.5-45.6) % MCHC 35 H (32-34) % RDW 16.5 H (13.2-15.2) % Plt Count 124 L (140-440) K/mm3 Lymph % (Auto) (13.4-35.0) % [place] % (Auto) (0.0-7.3) % Lymph # (Auto) (1.2-5.4) K/mm3 [place] # (Auto) (0.0-0.8) K/mm3 Seg Neutrophils % (40.0-70.0) % PT 15.4 H (12.2-14.9) Sec. INR 1.22 H (0.87-1.13) Sodium 133 L (137-145) mmol/L BUN 39 H (9-20) mg/dL Creatinine 3.9 H (0.8-1.3) mg/dL Calcium 7.6 L (8.4-10.2) mg/dL Crossmatch Medications & Allergies - Medications Allergies/Adverse Reactions: Allergies lisinopril Allergy (Verified 09/25/20 17:01) Swelling Home Medications: Home Medications Medication Instructions Recorded Confirmed Last Taken Type Aspirin [Adult Aspirin] 81 mg PO DAILY 09/25/20 10/02/20 2 Weeks Ago History ~09/18/20 Ascorbic Acid [Vitamin C] 1,000 mg PO DAILY 09/26/20 09/26/20 10/01/20 History Cyanocobalamin (Vitamin B-12) 2,500 mcg PO DAILY 09/26/20 09/26/20 10/01/20 History [Vitamin B12] Hydralazine HCl 50 mg PO BID 09/26/20 09/26/20 10/02/20 05:00 History Multivit-Min/FA/Lycopen/Lutein 1 each PO DAILY 09/26/20 09/26/20 10/01/20 History [Centrum Silver Tablet] NIFEdipine [Nifedipine ER] 60 mg PO DAILY 09/26/20 09/26/20 10/02/20 05:00 History Quetiapine Fumarate [SEROquel] 400 mg PO BID 09/26/20 09/26/20 10/01/20 History Rosuvastatin Calcium [Crestor] 10 mg PO DAILY 09/26/20 09/26/20 10/01/20 History Terazosin (Nf) [Hytrin (Nf)] 5 mg PO QHS 09/26/20 09/26/20 10/01/20 History carBAMazepine [Carbamazepine ER] 100 mg PO BID 09/26/20 09/26/20 10/02/20 05:00 History carvediloL [Coreg] 12.5 mg PO BID 09/26/20 09/26/20 10/02/20 05:00 History gemfibroziL [Lopid] 600 mg PO BID 09/26/20 09/26/20 10/01/20 History minoxidiL [Loniten] 10 mg PO QDAY 09/26/20 09/26/20 10/01/20 History Active Medications: Generic Name Dose Route Start Last Admin Trade Name Freq PRN Reason Stop Dose Admin Hydrocodone Bitart/Acetaminophen 2 each 10/02/20 11:13 10/04/20 05:37 [place] 5/325 PO 2 each Q4H PRN Administration Pain, Moderate (4-6) Atorvastatin Calcium 20 mg 10/04/20 10:00 Lipitor PO DAILY DIALLO Carbamazepine 100 mg 10/02/20 22:00 10/03/20 23:42 Tegretol Xr PO 100 mg BID DIALLO Administration Carvedilol 12.5 mg 10/02/20 22:00 10/03/20 23:40 Coreg PO 12.5 mg BID DIALLO Administration Cyanocobalamin 2,500 mcg 10/03/20 10:00 10/03/20 15:05 Vitamin B-12 PO 2,500 mcg DAILY DIALLO Administration Gemfibrozil 600 mg 10/02/20 22:00 10/03/20 23:41 Lopid PO 600 mg BID DIALLO Administration Hydralazine HCl 50 mg 10/02/20 22:00 10/03/20 22:00 Apresoline PO Not Given BID DIALLO Lactated Ringer's 1,000 mls @ 125 mls/hr 10/02/20 06:00 10/03/20 23:57 Lactated Ringers IV 125 mls/hr DIRECT DIALLO Administration Minoxidil 10 mg 10/03/20 08:00 10/03/20 15:06 Loniten PO 10 mg QDAY DIALLO Administration Morphine Sulfate 4 mg 10/02/20 11:13 Morphine IV Q4H PRN Pain , Severe (7-10) Multivitamins/Minerals 1 each 10/03/20 08:00 10/03/20 15:07 Theragran-M Tab PO 1 each QDAY DIALLO Administration Naloxone HCl 0.1 mg 10/02/20 11:13 Naloxone IV Q2MIN PRN Res Rate </= 8 or 02 SAT < 92% Nifedipine 60 mg 10/03/20 10:00 10/03/20 10:00 Procardia Xl PO Not Given DAILY DIALLO Ondansetron HCl 4 mg 10/02/20 11:13 Zofran IV Q8H PRN Nausea And Vomiting Prazosin HCl 1 mg 10/02/20 21:00 10/03/20 22:00 Prazosin PO Not Given QHS DIALLO Quetiapine Fumarate 400 mg 10/02/20 22:00 10/03/20 23:41 Seroquel PO 400 mg BID DIALLO Administration Sodium Chloride 1,000 ml 10/02/20 22:20 Nacl 0.9% IR PRN PRN Wound Care Zolpidem Tartrate 5 mg 10/02/20 11:13 Ambien PO QHS PRN Sleep
[2020-10-04] MEDS: NIFEdipine XL 60 MG TAB PO SCH (11:34)
[2020-10-04] MEDS: carvediloL 12.5 MG TAB PO SCH (11:35)
[2020-10-04] MEDS: carBAMazepine XR 100 MG TAB PO SCH (11:36)
[2020-10-04] MEDS: CYANOCOBALAMIN (VIT B-12) 1000 MCG TAB PO SCH (11:36)
[2020-10-04] MEDS: hydrALAZINE 25 MG TAB PO SCH (11:37)
[2020-10-04] MEDS: GEMFIBROZIL 600 MG TAB PO SCH (11:38)
[2020-10-04] MEDS: MINOXIDIL 10 MG TAB PO SCH (11:38)
[2020-10-04] MEDS: QUEtiapine 200 MG TAB PO SCH (11:43)
[2020-10-04] MEDS: MULTIVITAMINS,THER W-MINERALS TAB PO SCH (11:43)
[2020-10-04 14:09] LABS: Basophils # (Auto) 0.1 K/mm3 (0.0-0.1); Basophils % (Auto) 0.6 % (0.0-1.8); Eosinophils # (Auto) 0.5 K/mm3 (0.0-0.4); Eosinophils % (Auto) 4.8 % (0.0-4.3); Hematocrit 25.1 % (35.5-45.6); Hemoglobin 8.8 gm/dl (11.8-15.2); Lymphocytes # (Auto) 0.9 K/mm3 (1.2-5.4); Lymphocytes % (Auto) 8.7 % (13.4-35.0); Mean Corpuscular HGB Conc 35 % (32-34); Mean Corpuscular Volume 91 fl (84-94); Monocytes # (Auto) 1.2 K/mm3 (0.0-0.8); Monocytes % (Auto) 11.3 % (0.0-7.3); Platelet Count 129 K/mm3 (140-440); Red Blood Count 2.77 M/mm3 (3.65-5.03); Red Cell Distribution Width 17.1 % (13.2-15.2)
--- NOTE | 2020-10-04 15:29 | Progress Note ---
Assessment and Plan Assessment and plan: 65 year old male admitted for Robotic Prostectomy Post op Day 2 Prostate CA s/p prostectomy Acute Kidney Injury s/p Vasomotor Nephropathy Thrombocytopenia Anemia secondary to precipitous Drop in Hemoglobin Dehydration Hyponatremia JESS HTN Plan 10/04: Mild improvement in renal function. I will recommend nephrology evaluation outpatient or inpatient. My understanding is the patient is for discharge today. Discussed this findings with the patient. Continue supportive care Obtain Nephrology input if no improvement in Renal Restart Home meds Ensure care for JOSE drain Pain control Monitor H/H Discharge when ok with Urology History Interval history: Patient seen and examined, resting comfortable in no acute distress. Hospitalist Physical - Physical exam Narrative exam: VITAL SIGNS: Reviewed. GENERAL: The patient appears normally developed, Vital signs as documented. HEAD: No signs of head trauma. EYES: Pupils are equal. Extraocular motions intact. EARS: Hearing grossly intact. MOUTH: Oropharynx is normal. NECK: No adenopathy, no JVD. CHEST: Chest with clear breath sounds bilaterally. No wheezes, rales, or rhonchi. CARDIAC: Regular rate and rhythm. S1 and S2, without murmurs, gallops, or rubs. VASCULAR: No Edema. Peripheral pulses normal and equal in all extremities. ABDOMEN: Soft, non tender and non distended. No rebound or guarding, and no masses palpated. Bowel Sounds normal. MUSCULOSKELETAL: Good range of motion of all major joints. Extremities without clubbing, cyanosis or edema. NEUROLOGIC EXAM: Alert and oriented x 3 No focal sensory or strength deficits. Speech normal. Follows commands. PSYCHIATRIC: Mood normal. SKIN: detail exam as documented in skin assessment - Constitutional Vitals: Temp Pulse Resp BP Pulse Ox 98.8 F 72 20 115/50 94 10/04/20 12:26 10/04/20 12:26 10/04/20 12:26 10/04/20 12:26 10/04/20 12:26 General appearance: Present: no acute distress, well-nourished Results - Labs CBC & Chem 7: 10/04/20 13:49 10/04/20 13:49 Labs: Laboratory Last Values WBC 10.5 K/mm3 (4.5-11.0) 10/04/20 13:49 RBC 2.77 M/mm3 (3.65-5.03) L 10/04/20 13:49 Hgb 8.8 gm/dl (11.8-15.2) L 10/04/20 13:49 Hct 25.1 % (35.5-45.6) L 10/04/20 13:49 MCV 91 fl (84-94) 10/04/20 13:49 MCH 32 pg (28-32) 10/04/20 13:49 MCHC 35 % (32-34) H 10/04/20 13:49 RDW 17.1 % (13.2-15.2) H 10/04/20 13:49 Plt Count 129 K/mm3 (140-440) L 10/04/20 13:49 Lymph % (Auto) 8.7 % (13.4-35.0) L 10/04/20 13:49 [place] % (Auto) 11.3 % (0.0-7.3) H 10/04/20 13:49 Eos % (Auto) 4.8 % (0.0-4.3) H 10/04/20 13:49 Baso % (Auto) 0.6 % (0.0-1.8) 10/04/20 13:49 Lymph # (Auto) 0.9 K/mm3 (1.2-5.4) L 10/04/20 13:49 [place] # (Auto) 1.2 K/mm3 (0.0-0.8) H 10/04/20 13:49 Eos # (Auto) 0.5 K/mm3 (0.0-0.4) H 10/04/20 13:49 Baso # (Auto) 0.1 K/mm3 (0.0-0.1) 10/04/20 13:49 Seg Neutrophils % 74.6 % (40.0-70.0) H 10/04/20 13:49 Seg Neutrophils # 7.9 K/mm3 (1.8-7.7) H 10/04/20 13:49 PT 15.4 Sec. (12.2-14.9) H 10/04/20 06:09 INR 1.22 (0.87-1.13) H 10/04/20 06:09 APTT 35.6 Sec. (24.2-36.6) 10/04/20 06:09 Sodium 133 mmol/L (137-145) L 10/04/20 13:49 Potassium 4.5 mmol/L (3.6-5.0) 10/04/20 13:49 Chloride 99.9 mmol/L (98-107) 10/04/20 13:49 Carbon Dioxide 27 mmol/L (22-30) 10/04/20 13:49 Anion Gap 11 mmol/L 10/04/20 13:49 BUN 36 mg/dL (9-20) H 10/04/20 13:49 Creatinine 3.7 mg/dL (0.8-1.3) H 10/04/20 13:49 Estimated GFR 20 ml/min 10/04/20 13:49 BUN/Creatinine Ratio 10 % 10/04/20 13:49 Glucose 100 mg/dL (75-100) 10/04/20 13:49 Calcium 8.0 mg/dL (8.4-10.2) L 10/04/20 13:49 Total Bilirubin 0.30 mg/dL (0.1-1.2) 09/26/20 13:30 AST 20 units/L (5-40) 09/26/20 13:30 ALT 10 units/L (7-56) 09/26/20 13:30 Alkaline Phosphatase 75 units/L (35-129) 09/26/20 13:30 Total Protein 8.4 g/dL (6.3-8.2) H 09/26/20 13:30 Albumin 4.4 g/dL (3.9-5) 09/26/20 13:30 Albumin/Globulin Ratio 1.1 % 09/26/20 13:30 Coronavirus (PCR) Negative (Negative) 09/26/20 Unknown Blood Type O POSITIVE 10/02/20 06:50 Antibody Screen Negative 10/02/20 06:50 Crossmatch See Detail 10/02/20 06:50 Huang/IV: Voiding Method Indwelling Catheter IV Catheter Type [Left Forearm INT / Saline Lock ] IV Catheter Type [Right Peripheral IV Forearm] Active Medications - Current Medications Current Medications: Generic Name Dose Route Start Last Admin Trade Name Freq PRN Reason Stop Dose Admin Hydrocodone Bitart/Acetaminophen 2 each 10/02/20 11:13 10/04/20 11:32 [place] 5/325 PO 2 each Q4H PRN Administration Pain, Moderate (4-6) Atorvastatin Calcium 20 mg 10/04/20 10:00 10/04/20 11:34 Lipitor PO 20 mg DAILY DIALLO Administration Carbamazepine 100 mg 10/02/20 22:00 10/04/20 11:36 Tegretol Xr PO 100 mg BID DIALLO Administration Carvedilol 12.5 mg 10/02/20 22:00 10/04/20 11:35 Coreg PO 12.5 mg BID DIALLO Administration Cyanocobalamin 2,500 mcg 10/03/20 10:00 10/04/20 11:36 Vitamin B-12 PO 2,500 mcg DAILY DIALLO Administration Gemfibrozil 600 mg 10/02/20 22:00 10/04/20 11:38 Lopid PO 600 mg BID DIALLO Administration Hydralazine HCl 50 mg 10/02/20 22:00 10/04/20 11:37 Apresoline PO 50 mg BID DIALLO Administration Lactated Ringer's 1,000 mls @ 125 mls/hr 10/02/20 06:00 10/03/20 23:57 Lactated Ringers IV 125 mls/hr DIRECT DIALLO Administration Minoxidil 10 mg 10/03/20 08:00 10/04/20 11:38 Loniten PO 10 mg QDAY DIALLO Administration Morphine Sulfate 4 mg 10/02/20 11:13 Morphine IV Q4H PRN Pain , Severe (7-10) Multivitamins/Minerals 1 each 10/03/20 08:00 10/04/20 11:43 Theragran-M Tab PO 1 each QDAY DIALLO Administration Naloxone HCl 0.1 mg 10/02/20 11:13 Naloxone IV Q2MIN PRN Res Rate </= 8 or 02 SAT < 92% Nifedipine 60 mg 10/03/20 10:00 10/04/20 11:34 Procardia Xl PO 60 mg DAILY DIALLO Administration Ondansetron HCl 4 mg 10/02/20 11:13 Zofran IV Q8H PRN Nausea And Vomiting Prazosin HCl 1 mg 10/02/20 21:00 10/03/20 22:00 Prazosin PO Not Given QHS DIALLO Quetiapine Fumarate 400 mg 10/02/20 22:00 10/04/20 11:43 Seroquel PO 400 mg BID DIALLO Administration Sodium Chloride 1,000 ml 10/02/20 22:20 Nacl 0.9% IR PRN PRN Wound Care Zolpidem Tartrate 5 mg 10/02/20 11:13 Ambien PO QHS PRN Sleep
[2020-10-04 16:59] VITALS: BP 130/60
== END 2020-10-04 19:43 | disposition home or self-care (01) ==
LOC: OR 06:23 → 3A 11:13 → 3B 14:25
PROVIDERS: ADMIT Urology; ATTEND Urology
DX: C61 Malignant neoplasm of prostate (principal); Z20.828 Contact with and (suspected) exposure to other viral communicable diseases; D64.9 Anemia, unspecified; E86.0 Dehydration; N17.0 Acute kidney failure with tubular necrosis; E87.1 Hypo-osmolality and hyponatremia; D69.6 Thrombocytopenia, unspecified; G47.33 Obstructive sleep apnea (adult) (pediatric); I10 Essential (primary) hypertension; Z71.3 Dietary counseling and surveillance; Z79.82 Long term (current) use of aspirin; Z79.899 Other long term (current) drug therapy; Z88.8 Allergy status to other drugs, medicaments and biological substances
CPT/HCPCS: 36415; 36430; 55866; 74176; 80048; 80053; 85014; 85018; 85025; 85027; 85610; 85730; 86850; 86900; 86901; 86920; 88309; 96361; 96365; 96366; 96375; A4217; A9270; G0378; J0330; J0690; J1100; J1170; J2250; J2370; J2405; J2704; J2710; J3010; J7040; J7120; P9016; Q9968; S2900; U0003; 96376

== ENCOUNTER 2021-03-14 07:18 | Day surgery (SDC) | payer MEDICARE ==
[2021-03-09 13:40] LABS: Hematocrit 24.7 % (35.5-45.6); Mean Corpuscular HGB Conc 36 % (32-34); Mean Corpuscular Volume 92 fl (84-94); Platelet Count 307 K/mm3 (140-440); Red Blood Count 2.68 M/mm3 (3.65-5.03); Red Cell Distribution Width 15.8 % (13.2-15.2)
[2021-03-09 13:59] LABS: Calcium 8.5 mg/dL (8.4-10.2)
--- NOTE | 2021-03-09 18:37 | Anesthesia Consultation ---
Anesthesia Consult and Med Hx Date of service: 03/14/21 - Airway Anesthetic Teeth Evaluation: Dentures (upper) ROM Head & Neck: Adequate Mental/Hyoid Distance: Adequate Mallampati Class: Class III Intubation Access Assessment: Probably Good (previous easy intubation w/ MAC 4) - Pulmonary Exam CTA: Yes - Cardiac Exam Cardiac Exam: RRR - Pre-Operative Health Status ASA Pre-Surgery Classification: ASA3 Proposed Anesthetic Plan: General - Pulmonary Hx Smoking: No Hx Respiratory Symptoms: No Hx Sleep Apnea: Yes (s/p surgery; no CPAP) - Cardiovascular System Hx Hypertension: Yes Hx Heart Attack/AMI: No Hx Percutaneous Transluminal Coronary Angioplasty (PTCA): No Hx Cardia Arrhythmia: No - Central Nervous System Hx Neuromuscular Disorder: No (peripheral neuropathy b/l feet) CVA: No Hx Psychiatric Problems: Yes (bipolar disorder) - Endocrine Hx Renal Disease: Yes (CKD 3) Hx Liver Disease: No Hx Insulin Dependent Diabetes: No Hx Non-Insulin Dependent Diabetes: No Hx Thyroid Disease: No - Hematic Hx Anemia: Yes - Other Systems Hx Cancer: Yes (hx prostate ca s/p prostatectomy) Hx Obesity: No - Additional Comments Anesthesia Medical History Comments: Hx CHF and pHTN noted in chart but patient denies. States he had normal stress test ~2yrs ago. Cardiology records requested. No signs/symptoms HF decompensation at this time. No hx anesthetic complications.
[~2021-03-14 07:18] MED LIST changes: -ACETAMINOPHEN 500 MG TAB PO ONE; -BACTERIOSTATIC SODIUM CHLORIDE 0.9% 30 ML VIAL INFILTRATI ONE; -CELECOXIB 200 MG CAP PO NR; -GABAPENTIN 300 MG CAP PO NR; -MAGNESIUM OXIDE 400 MG TAB PO ONE; -MIDAZOLAM 2 MG/2 ML INJ IV NR; +SODIUM CHLORIDE 0.9% 1000 ML 1,000 ML IV SCH
[2021-03-14] MEDS ORDERED: ONDANSETRON 4 MG/2 ML INJ IV PRN (08:16)
[2021-03-14] MEDS ORDERED: HYDROmorphone 1 MG/1 ML INJ IV PRN ×2 (08:16)
--- NOTE | 2021-03-14 08:16 | Anesthesia Day of Surgery ---
Anesthesia Day of Surgery - Day of Surgery Patient Examined: Yes Patient H&P Reviewed: Yes Patient is NPO: Yes
[2021-03-14] MEDS ORDERED: ONDANSETRON 4 MG/2 ML INJ ONE (08:36)
[2021-03-14] MEDS ORDERED: LIDOCAINE MPF (2%) 20 MG/1 ML VIAL 5 ML ONE (08:36)
[2021-03-14] MEDS ORDERED: propofoL 200 MG/20 ML VIAL IV ONE ×2 (08:36→09:30)
[2021-03-14] MEDS ORDERED: dexAMETHasone 20 MG/5 ML VIAL ONE (08:36)
[2021-03-14] MEDS ORDERED: fentaNYL 100 MCG/2 ML INJ ONE (08:37)
[2021-03-14] MEDS ORDERED: ceFAZolin/STERILE WATER 2 GM/20 ML SYRINGE IV NR (09:00)
[2021-03-14] MEDS ORDERED: ePHEDrine SULFATE 50 MG/1 ML INJ ONE ×3 (09:10→09:28)
[2021-03-14] MEDS ORDERED: NEOSTIGMINE 10MG/10 ML INJ MDV ONE (09:30)
[2021-03-14] MEDS ORDERED: GLYCOPYRROLATE 0.4 MG/2 ML INJ ONE (09:30)
[2021-03-14] MEDS ORDERED: SUCCINYLCHOLINE CHLORIDE 200 MG/10 ML INJ MDV ONE (09:30)
[2021-03-14] MEDS ORDERED: IOHEXOL 300 MG/ML 50ML IV ONE (09:35)
[2021-03-14] MEDS ORDERED: VASOPRESSIN 20 UNIT/1 ML INJ ONE (09:44)
--- NOTE | 2021-03-14 10:15 | Short Stay Summary ---
Short Stay Documentation Date of service: 03/14/21 - History H&P: obtained from office - Allergies and Medications Current Medications: Allergies lisinopril Allergy (Verified 09/25/20 17:01) Swelling Home Medications Medication Instructions Recorded Confirmed Last Taken Type Hydralazine HCl 50 mg PO BID 09/26/20 09/26/20 10/02/20 05:00 History NIFEdipine [Nifedipine ER] 60 mg PO DAILY 09/26/20 03/14/21 03/14/21 07:00 Hist ory Quetiapine Fumarate [SEROquel] 400 mg PO BID 09/26/20 03/14/21 03/13/21 17:00 History Rosuvastatin Calcium [Crestor] 10 mg PO DAILY 09/26/20 03/14/21 03/13/21 20:00 History Terazosin (Nf) [Hytrin (Nf)] 5 mg PO QHS 09/26/20 03/14/21 03/13/21 20:00 History carvediloL [Coreg] 12.5 mg PO BID 09/26/20 03/14/21 03/14/21 06:00 History gemfibroziL [Lopid] 600 mg PO BID 09/26/20 03/14/21 03/14/21 07:00 History minoxidiL [Loniten] 10 mg PO QDAY 09/26/20 03/14/21 03/13/21 09:00 History Gabapentin 300 mg PO TID 03/08/21 03/14/21 03/13/21 18:00 History Active Medications Cefazolin Sodium (Cefazolin/Sterile Water 2 Gm/20 Ml Syringe) 2 gm IV PREOP NR Stop: 03/14/21 20:00 Hydromorphone HCl (Hydromorphone 1 Mg/1 Ml Inj) 0.25 mg IV Q10MIN PRN PRN Reason: Pain, Moderate (4-6) Stop: 03/14/21 23:00 Hydromorphone HCl (Hydromorphone 1 Mg/1 Ml Inj) 0.5 mg IV Q10MIN PRN PRN Reason: Pain , Severe (7-10) Stop: 03/14/21 23:00 Sodium Chloride (Nacl 0.9% 1000 Ml) 1,000 mls @ 42 mls/hr IV DIRECT DIALLO Stop: 03/14/21 23:59 Ondansetron HCl (Ondansetron 4 Mg/2 Ml Inj) 4 mg IV ONCE PRN PRN Reason: Nausea And Vomiting Stop: 03/14/21 13:00 - Brief post op/procedure progress note Date of procedure: 03/14/21 Pre-op diagnosis: cyto, DVIU, flex scope via spt, rpb, cystogram Post-op diagnosis: same Procedure: dense urethral stricture Anesthesia: GETA Surgeon: SEBASTIAN RANGEL Estimated blood loss: minimal Pathology: none Condition: stable - Hospital course Hospital course: saleemriannia & kike on chart - Disposition Condition at discharge: Stable Disposition: DC-01 TO HOME OR SELFCARE Short Stay Discharge Plan Follow up with: ESSENCE FIELD [Other] - 7 Days Forms: Outpatient Surgery DC Inst.
--- NOTE | 2021-03-14 11:58 | Post Anesthesia Evaluation ---
- Post Anesthesia Evaluation Patient Participated: Yes Airway Patent: Yes Stable Respiratory Function: Yes Nausea/Vomiting: No Temp > 96.8F: Yes Pain Manageable: Yes Adequeate Hydration: Yes Anesthesia Complications: No Block Receding Appropriately: Not Applicable Patient on Ventilator: No
--- NOTE | 2021-03-14 12:09 | Operative Report ---
DATE OF SURGERY: 03/14/2021 PREOPERATIVE DIAGNOSIS: Dense urethral stricture, status post robotic prostatectomy. POSTOPERATIVE DIAGNOSIS: Dense urethral stricture, status post robotic prostatectomy. PROCEDURES: Cystoscopy, direct vision internal urethrotomy, bilateral retrograde pyelograms, flexible endoscopy via suprapubic site, exchange suprapubic catheter 16-[place] urethral catheter placement, cystogram. SURGEON: Dr. Chawla. ANESTHESIA: General. ESTIMATED BLOOD LOSS: Minimal. FLUIDS: Crystalloid. COMPLICATIONS: No complications. INDICATIONS: This patient is a 65-year-old gentleman with a history of prostate cancer, underwent robotic prostatectomy with postoperative hematoma. Postop course was complicated with dense urethral stricture that required a suprapubic catheter placement. He presents now for cystoscopy and urethral evaluation. DESCRIPTION OF PROCEDURE: The patient was taken to the operative suite, placed in the supine position. After adequate general anesthesia, placed in the dorsal lithotomy position, prepped and draped in a sterile fashion. Hernandez-cystourethroscopy was performed with a 22-[place] Storz cystoscope. The urethra was normal, but dense stricture at the bladder neck. A flexible cystoscopy was performed via the suprapubic site. Attempts to pass a wire was unsuccessful on both sides. There appeared to be a gap of probably less than a centimeter. Using a cold knife, a small little incision was made via the urethra, was able to advance a wire into the bladder without difficulty. Dilation using Verma sounds starting at 14-Belizean and going up to 24 was performed. Cystoscopy, no bladder tumors, bladder appeared normal. Bilateral retrograde pyelograms were obtained with an 8-[place]izean Miller catheter and 8 mL of contrast. No filling defects or obstruction. 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 No obstruction could be appreciated. Suprapubic catheter was replaced. A 16-[place] telida tip catheter was advanced into the bladder via the urethra. Rectal exam was benign. He was extubated and taken to recovery room. He will go home on Bactrim and [place]. TID: [id number] RECEIPT: [id number] C/STD/IQB
[2021-03-14 12:10] VITALS: BP 118/54
--- NOTE | 2021-03-14 14:22 | Fluoroscopy Report ---
Fluoroscopy retrograde urography Fluoroscopy cystogram static HISTORY: Urethral stricture COMPARISON: None FINDINGS: 0.6 minutes of fluoroscopy time was provided by radiology during retrograde urography by ur ology. 6 fluoroscopic images are presented. Please correlate with the procedural report. Signer Name: Slava Polk Jr, MD Signed: 03/14/2021 2:17 PM Workstation Name: [id number]
== END 2021-03-14 11:50 | disposition home or self-care (01) ==
LOC: OR 07:18
PROVIDERS: ATTEND Urology
DX: N35.819 Other urethral stricture, male, unspecified site (principal); Z20.822 Contact with and (suspected) exposure to COVID-19; H40.9 Unspecified glaucoma; E78.00 Pure hypercholesterolemia, unspecified; I12.9 Hypertensive chronic kidney disease with stage 1 through stage 4 chronic kidney disease, or unspecified chronic kidney disease; N18.30 Chronic kidney disease, stage 3 unspecified; F31.9 Bipolar disorder, unspecified; Z88.8 Allergy status to other drugs, medicaments and biological substances; Z79.899 Other long term (current) drug therapy; Z90.49 Acquired absence of other specified parts of digestive tract; Z85.46 Personal history of malignant neoplasm of prostate; Z87.440 Personal history of urinary (tract) infections; Z98.890 Other specified postprocedural states; Z86.2 Personal history of diseases of the blood and blood-forming organs and certain disorders involving the immune mechanism
CPT/HCPCS: 36415; 51705; 52276; 74420; 74430; 80048; 85027; J0330; J0690; J1100; J2405; J2704; J2710; J3010; J7030; Q9967; U0003